=== PATIENT | female | born 1970 | race Native Hawaiian/Other Pacific Islander ===

== ENCOUNTER 2017-11-19 20:49 | Emergency (ER) | payer OTHER | END 2017-11-19 21:20 | disposition home or self-care (01) | LOC: ED 20:49 | DX: R68.89 Other general symptoms and signs (principal) | CPT/HCPCS: 99281 ==

== ENCOUNTER 2018-04-02 01:26 | Emergency (ER) | payer OTHER ==
[~2018-04-02] VITALS: Ht 165.1 cm; Wt 48.1 kg
[2018-04-02] MEDS ORDERED: BISOPROL FUM5 MG PO (01:34)
[2018-04-02 02:30] LABS: PLATELET COUNT 239 K/uL (152-353)
[2018-04-02 03:59] VITALS: BP 117/78; TEMP 97.3
== END 2018-04-02 04:02 | disposition home or self-care (01) ==
LOC: ED 01:26
PROVIDERS: Family Medicine
DX: R42 Dizziness and giddiness (principal); J30.9 Allergic rhinitis, unspecified; R51 Headache
CPT/HCPCS: 36415; 80053; 85027; 96372; 99283; J1885

== ENCOUNTER 2020-11-17 14:42 | Outpatient (CLI) | payer OTHER ==
[~2020-11-17 14:42] MED LIST: BISOPROL FUM5 MG PO
== END 2020-11-17 22:09 | disposition home or self-care (01) ==
LOC: MAMMO 14:42
PROVIDERS: ATTEND Obstetrics & Gynecology
DX: Z12.31 Encounter for screening mammogram for malignant neoplasm of breast (principal)